=== PATIENT | male | born 1950 | race African-American/Black ===

== ENCOUNTER → 2016-04-12 | Outpatient (CLI) | payer MEDICARE, OTHER ==
[~2016-04-12] VITALS: Ht 165.1 cm; Wt 107.6 kg
[~2016-04-12] MED LIST: ASPI81TA2 PO; BISA5TAB12 PO; BUME1TAB30 PO; CALC-895 PO; FERR-89 PO; LANS30 PO; LEVO50TA4 PO; LINA5TAB PO; LISI-660 PO; SIRO1 PO; TACR1 PO; VITAD1000 PO
[2016-04-12 12:55] VITALS: BP 115/79
== END | disposition home or self-care (01) ==
LOC: SRCNTR 12:24
PROVIDERS: ATTEND Internal Medicine Critical Care Medicine
DX: J44.9 Chronic obstructive pulmonary disease, unspecified (principal); J96.10 Chronic respiratory failure, unspecified whether with hypoxia or hypercapnia; G47.33 Obstructive sleep apnea (adult) (pediatric); R09.02 Hypoxemia; E11.9 Type 2 diabetes mellitus without complications; I10 Essential (primary) hypertension; I50.9 Heart failure, unspecified
CPT/HCPCS: G0463

== ENCOUNTER → 2016-06-28 | Outpatient (CLI) | payer MEDICARE, OTHER ==
[~2016-06-28] VITALS: Ht 165.1 cm; Wt 102.5 kg
[~2016-06-28] MED LIST changes: -FERR-89 PO; +FERS325 PO
[2016-06-28 11:01] VITALS: BP 124/81
== END | disposition home or self-care (01) ==
LOC: SRCNTR 10:52
PROVIDERS: ATTEND Internal Medicine Critical Care Medicine
DX: J96.10 Chronic respiratory failure, unspecified whether with hypoxia or hypercapnia (principal); G47.33 Obstructive sleep apnea (adult) (pediatric); J44.9 Chronic obstructive pulmonary disease, unspecified; R09.02 Hypoxemia; E11.9 Type 2 diabetes mellitus without complications; I11.0 Hypertensive heart disease with heart failure; I50.9 Heart failure, unspecified; I42.9 Cardiomyopathy, unspecified; E78.5 Hyperlipidemia, unspecified; I25.10 Atherosclerotic heart disease of native coronary artery without angina pectoris; N40.0 Benign prostatic hyperplasia without lower urinary tract symptoms; Z94.1 Heart transplant status
CPT/HCPCS: G0463

== ENCOUNTER → 2016-07-01 | Outpatient (CLI) | payer MEDICARE, OTHER | END | disposition home or self-care (01) | LOC: RADMN 12:59 | PROVIDERS: ATTEND Internal Medicine Critical Care Medicine | DX: R91.1 Solitary pulmonary nodule (principal); I51.7 Cardiomegaly; I25.10 Atherosclerotic heart disease of native coronary artery without angina pectoris; I70.0 Atherosclerosis of aorta | CPT/HCPCS: 71250 ==

== ENCOUNTER → 2016-09-16 | Outpatient (CLI) | payer MEDICARE, OTHER ==
[~2016-09-16] VITALS: Ht 165.1 cm; Wt 104.6 kg
[~2016-09-16] MED LIST changes: +ALBU6.7H IH; +AMIO200T2 PO; +AMIO200T44 PO; +ATEN-188 PO; +ATOR40TA28 PO; +BENZ-26 PO; +BUDE0.5A5 IH; +CARV3.1231 PO; +CHOLESTEROL MED; +CLON.2 PO; +CLOP75 PO; +CLOT15C TP; +COMBIH IH; +DIGO125T71 PO; +DOBUTAMINE HCL; +DOCU250C91 PO; +FERR-89 PO; -FERS325 PO; +FLUT16H NASAL; +FURO10VI4 PO; +FURO20 PO; +FURO40 PO; +GLIP5 PO; +GLIP5TAB3 PO; +GLYB2.5 PO; +GUAI600T PO; +HTN; +HYDR10TA31 PO; +KDUR10 PO; +LACT30L PO; +LEVAHFA IH; +LEVO50 PO; +LEVO500T62 PO; +LISI-661 PO; +MAGOX PO; +METF500T4 PO; +METF500T7 PO; +METO-296 PO; +METO5TAB95 PO; +NITR1OIN TD; +NITR1OIN TP; +OCTR20VI3 SQ; +OMEP20 PO; +PANT40TA PO; +PANT40TA25 PO; +POTA10TA14 PO; +PRAS10TA6 PO; +PRAV20TA4 PO; +SILO8CAP PO; +SIMV-261 PO; +SITA100 PO; +SITA25 PO; +SITA50 PO; +SPIR25 PO; +TELM80TA2 PO; +TIOT185 IH; +WARF7.5 PO; +ZARO2.5 PO; +[UNRECOGNIZED DRUG - CODE] IV; +[UNRECOGNIZED DRUG - CODE] PO
[2016-09-16 13:40] VITALS: BP 100/74
== END | disposition home or self-care (01) ==
LOC: SRCNTR 13:27
PROVIDERS: ATTEND Internal Medicine
DX: J44.9 Chronic obstructive pulmonary disease, unspecified (principal); G47.33 Obstructive sleep apnea (adult) (pediatric); E11.9 Type 2 diabetes mellitus without complications; E78.5 Hyperlipidemia, unspecified; I10 Essential (primary) hypertension; I42.9 Cardiomyopathy, unspecified; N40.0 Benign prostatic hyperplasia without lower urinary tract symptoms; R91.1 Solitary pulmonary nodule; I25.811 Atherosclerosis of native coronary artery of transplanted heart without angina pectoris
CPT/HCPCS: G0463

== ENCOUNTER 2016-12-18 04:15 | Emergency (ER) | payer MEDICARE, OTHER ==
[~2016-12-18] VITALS: Ht 167.6 cm; Wt 105.0 kg
[~2016-12-18 04:15] MED LIST changes: -ALBU6.7H IH; -AMIO200T2 PO; -AMIO200T44 PO; +ASPI-1198 PO; -ASPI81TA2 PO; -ATEN-188 PO; -ATOR40TA28 PO; -BENZ-26 PO; -BUDE0.5A5 IH; +BUME1TAB17 PO; -BUME1TAB30 PO; -CARV3.1231 PO; -CHOLESTEROL MED; -CLON.2 PO; -CLOP75 PO; -CLOT15C TP; -COMBIH IH; -DIGO125T71 PO; -DOBUTAMINE HCL; -DOCU250C91 PO; -FLUT16H NASAL; -FURO10VI4 PO; -FURO20 PO; -FURO40 PO; -GLIP5 PO; -GLIP5TAB3 PO; -GLYB2.5 PO; -GUAI600T PO; -HTN; -HYDR10TA31 PO; -KDUR10 PO; -LACT30L PO; -LANS30 PO; -LEVAHFA IH; -LEVO50 PO; -LEVO500T62 PO; -LISI-661 PO; -MAGOX PO; -METF500T4 PO; -METF500T7 PO; -METO-296 PO; -METO5TAB95 PO; -NITR1OIN TD; -NITR1OIN TP; -OCTR20VI3 SQ; -OMEP20 PO; -PANT40TA PO; -PANT40TA25 PO; -POTA10TA14 PO; -PRAS10TA6 PO; -PRAV20TA4 PO; -SILO8CAP PO; -SIMV-261 PO; -SITA100 PO; -SITA25 PO; -SITA50 PO; -SPIR25 PO; -TELM80TA2 PO; -TIOT185 IH; -WARF7.5 PO; -ZARO2.5 PO; -[UNRECOGNIZED DRUG - CODE] IV; -[UNRECOGNIZED DRUG - CODE] PO
[2016-12-18] MEDS ORDERED: TADA10TA PO (04:24)
[2016-12-18] MEDS ORDERED: PRAV40TA4 PO (04:24)
[2016-12-18 04:53] LABS: BASOPHILS % (AUTO) 0.5 % (0.0-2.0); EOSINOPHILS % (AUTO) 0.8 % (1.0-6.0); HEMOGLOBIN 14.2 g/dL (13.5-17.5); LYMPHOCYTES # (AUTO) 0.6 K/uL (1.0-4.8); MEAN CORPUSCULAR HEMOGLOBIN 27.2 pg (26.0-34.0); MEAN CORPUSCULAR HGB CONC 33.8 G/dL (31.0-37.0); MEAN CORPUSCULAR VOLUME 81 fL (80-100); MONOCYTES # (AUTO) 0.3 K/uL (0.1-1.0); MONOCYTES % (AUTO) 6.4 % (2.0-9.0); NEUTROPHILS % (AUTO) 76.3 % (40.0-70.0); PLATELET COUNT (AUTO) 173 K/uL (150-450); RED BLOOD CELL COUNT(AUTO) 5.21 MIL/uL (4.50-5.90); RED CELL DISTRIBUTION WIDTH 15.4 % (11.5-14.5)
[2016-12-18] MEDS ORDERED: SODIUM CHLORIDE 0.9% 500 ML IV ONE (05:00)
[2016-12-18] MEDS ORDERED: MORPHINE SULFATE 4 MG/ML SYRINGE IVP ONE (05:00)
[2016-12-18] MEDS ORDERED: ONDANSETRON HCL 4 MG/2 ML VIAL IVP ONE (05:00)
[2016-12-18] MEDS ORDERED: BARIUM SULFATE 0.1% SUSPENSION 450 ML BOTTLE PO ONE (05:00)
[2016-12-18 05:11] LABS: CREATININE 1.64 mg/dL (0.60-1.30)
[2016-12-18 05:16] LABS: ALBUMIN 4.1 g/dL (3.4-5.0); BILIRUBIN,TOTAL 0.3 mg/dL (0.1-1.0); TOTAL PROTEIN, SERUM 7.9 g/dL (6.4-8.2)
[2016-12-18 05:22] LABS: PROTHROMBIN TIME 10.3 SEC (9.4-11.6)
[2016-12-18] MEDS ORDERED: IOVERSOL 320 MG/ML 100 ML VIAL ONE (06:00)
[2016-12-18] MEDS ORDERED: SODIUM CHLORIDE 0.9% 100 ML ONE (06:00)
[2016-12-18 06:35] LABS: APPEARANCE,URINE CLEAR (CLEAR); GLUCOSE, URINE (UA) NEGATIVE (NEGATIVE); KETONES,URINE NEGATIVE (NEGATIVE); LEUKOCYTE ESTERASE ,URINE NEGATIVE (NEGATIVE); OCCULT BLOOD,URINE NEGATIVE (NEGATIVE); PH,URINE 6.5 (5.0-8.0); PROTEIN,URINE NEGATIVE (NEGATIVE)
[2016-12-18 06:43] LABS: ADD UA MICROSCOPIC NO
[2016-12-18 09:00] VITALS: BP 128/80
[2016-12-18 11:33] LABS: GLUCOSE,POINT OF CARE 108 MG/DL (70-110)
== END 2016-12-18 09:27 | disposition left against medical advice (07) ==
LOC: EMS 04:18
DX: K56.7 Ileus, unspecified (principal); I11.0 Hypertensive heart disease with heart failure; I50.9 Heart failure, unspecified; I25.10 Atherosclerotic heart disease of native coronary artery without angina pectoris; E78.00 Pure hypercholesterolemia, unspecified; J44.9 Chronic obstructive pulmonary disease, unspecified; I25.2 Old myocardial infarction; E11.9 Type 2 diabetes mellitus without complications; Z95.0 Presence of cardiac pacemaker; Z79.82 Long term (current) use of aspirin; Z88.0 Allergy status to penicillin; Z88.1 Allergy status to other antibiotic agents
CPT/HCPCS: 36415; 74176; 80053; 81003; 82962; 83690; 84484; 85025; 85610; 93005; 96361; 96374; 96375; 99285; J2270; J2405; J7030; J7050; Q9967

== ENCOUNTER → 2017-01-06 | Outpatient (CLI) | payer MEDICARE, OTHER ==
[~2017-01-06] MED LIST changes: +PRAV40TA4 PO; +TADA10TA PO
== END | disposition home or self-care (01) ==
LOC: MSR 11:06
PROVIDERS: ATTEND Internal Medicine
DX: R91.1 Solitary pulmonary nodule (principal); J44.1 Chronic obstructive pulmonary disease with (acute) exacerbation; J98.4 Other disorders of lung; M46.00 Spinal enthesopathy, site unspecified
CPT/HCPCS: 71250; 94010; 94726; 94727; 94729

== ENCOUNTER 2017-04-06 09:17 | Emergency (ER) | payer MEDICARE, OTHER ==
[~2017-04-06] VITALS: Ht 170.2 cm; Wt 102.7 kg
[2017-04-06 09:42] LABS: GLUCOSE,POINT OF CARE 118 MG/DL (70-110)
[2017-04-06] MEDS ORDERED: PredniSONE 20 MG TABLET PO ONE (10:15)
[2017-04-06] MEDS ORDERED: DiphenhydrAMINE HCL 50 MG CAPSULE PO ONE (10:15)
[2017-04-06 11:40] VITALS: BP 128/90
== END 2017-04-06 12:29 | disposition home or self-care (01) ==
LOC: EMS 09:20
DX: T78.3XXA Angioneurotic edema, initial encounter (principal); I11.0 Hypertensive heart disease with heart failure; I25.811 Atherosclerosis of native coronary artery of transplanted heart without angina pectoris; E03.9 Hypothyroidism, unspecified; E11.9 Type 2 diabetes mellitus without complications; E78.00 Pure hypercholesterolemia, unspecified; I50.9 Heart failure, unspecified; J44.9 Chronic obstructive pulmonary disease, unspecified; Z88.0 Allergy status to penicillin; Z95.0 Presence of cardiac pacemaker; Z95.5 Presence of coronary angioplasty implant and graft; Z79.82 Long term (current) use of aspirin
CPT/HCPCS: 82962; 99283; J7512

== ENCOUNTER 2017-10-19 15:11 | Emergency (ER) | payer MEDICARE, OTHER ==
[~2017-10-19] VITALS: Ht 167.6 cm; Wt 100.0 kg
[~2017-10-19 15:11] MED LIST changes: -FERR-89 PO
[2017-10-19 16:07] LABS: BASOPHILS % (AUTO) 0.8 % (0.0-2.0); EOSINOPHILS % (AUTO) 0.1 % (1.0-6.0); HEMATOCRIT 45.9 % (41-53); HEMOGLOBIN 15.7 g/dL (13.5-17.5); LYMPHOCYTES # (AUTO) 0.8 K/uL (1.0-4.8); LYMPHOCYTES % (AUTO) 11.7 % (22.0-44.0); MEAN CORPUSCULAR HEMOGLOBIN 30.5 pg (26.0-34.0); MEAN CORPUSCULAR HGB CONC 34.2 G/dL (31.0-37.0); MEAN CORPUSCULAR VOLUME 89 fL (80-100); MONOCYTES # (AUTO) 0.5 K/uL (0.1-1.0); MONOCYTES % (AUTO) 7.5 % (2.0-9.0); NEUTROPHILS # (AUTO) 5.5 K/uL (1.8-7.7); NEUTROPHILS % (AUTO) 79.9 % (40.0-70.0); PLATELET COUNT (AUTO) 176 K/uL (150-450); RED BLOOD CELL COUNT(AUTO) 5.16 MIL/uL (4.50-5.90); RED CELL DISTRIBUTION WIDTH 13.9 % (11.5-14.5)
[2017-10-19 16:23] LABS: ANION GAP 11 mmol/L (8-16); CALCIUM, TOTAL 9.4 mg/dL (8.8-10.5); CARBON DIOXIDE 31 mmol/L (22-29); CHLORIDE 97 mmol/L (98-107); CREATININE 1.39 mg/dL (0.60-1.30); GLOMERULAR FILTR. RATE CALC > 60 mL/min (>60); GLUCOSE,RANDOM 194 mg/dL (70-110); POTASSIUM 3.2 mmol/L (3.5-5.1); SODIUM SERUM 139 mmol/L (136-145); UREA NITROGEN, BLOOD 26 mg/dL (7-18)
[2017-10-19 16:34] LABS: ALANINE AMINOTRANSFERASE 23 U/L (12-78); ALBUMIN 4.2 g/dL (3.4-5.0); ALKALINE PHOSPHATASE 57 U/L (46-116); ASPARTATE AMINOTRANSFERASE 21 U/L (15-37); BILIRUBIN,TOTAL 0.6 mg/dL (0.1-1.0); LIPASE 204 U/L (73-393); TOTAL PROTEIN, SERUM 8.3 g/dL (6.4-8.2)
[2017-10-19] MEDS ORDERED: MORPHINE SULFATE 4 MG/ML SYRINGE IVP ONE ×2 (17:15→20:30)
[2017-10-19] MEDS ORDERED: ONDANSETRON HCL 4 MG/2 ML VIAL IVP ONE ×2 (17:15→20:30)
[2017-10-19 17:50] LABS: APPEARANCE,URINE CLEAR (CLEAR); BILIRUBIN,URINE NEGATIVE (NEGATIVE); GLUCOSE, URINE (UA) 250 mg/dL (NEGATIVE); KETONES,URINE TRACE mg/dL (NEGATIVE); LEUKOCYTE ESTERASE ,URINE NEGATIVE (NEGATIVE); NITRATE,URINE NEGATIVE (NEGATIVE); OCCULT BLOOD,URINE TRACE (NEGATIVE); PROTEIN,URINE SEE CONFIRM (NEGATIVE); UROBILINOGEN,URINE 0.2 mg/dL (<=1.0)
[2017-10-19 18:31] LABS: BACTERIA,URINE None Seen /HPF (None Seen); SQUAMOUS EPITHELIAL CELL,UR Rare /LPF (None Seen); SULFOSALICYLIC ACID,URINE 2+ (Negative); WBC,URINE None Seen /HPF (0-5)
[2017-10-19 21:22] VITALS: BP 132/89
== END 2017-10-19 21:41 | disposition home or self-care (01) ==
LOC: EMS 15:11
DX: R10.13 Epigastric pain (principal); I11.0 Hypertensive heart disease with heart failure; I50.9 Heart failure, unspecified; J44.9 Chronic obstructive pulmonary disease, unspecified; E11.9 Type 2 diabetes mellitus without complications; E78.00 Pure hypercholesterolemia, unspecified; E03.9 Hypothyroidism, unspecified; I25.2 Old myocardial infarction; Z94.1 Heart transplant status; Z95.0 Presence of cardiac pacemaker; Z88.0 Allergy status to penicillin; Z88.1 Allergy status to other antibiotic agents; Z79.82 Long term (current) use of aspirin; Z79.899 Other long term (current) drug therapy
CPT/HCPCS: 36415; 71045; 74177; 76705; 80053; 81001; 83690; 84484; 85025; 93005; 96374; 96375; 99285; J2270; J2405

== ENCOUNTER 2018-02-26 09:24 | Emergency (ER) | payer MEDICARE, OTHER ==
[~2018-02-26] VITALS: Ht 177.8 cm; Wt 103.2 kg
[2018-02-26] MEDS ORDERED: PRAV40TA PO (09:55)
[2018-02-26] MEDS ORDERED: AMLO5TAB66 PO (09:55)
[2018-02-26 10:35] LABS: BASOPHILS % (AUTO) 0.1 % (0.0-2.0); EOSINOPHILS % (AUTO) 0.2 % (1.0-6.0); HEMATOCRIT 41.5 % (41-53); HEMOGLOBIN 14.2 g/dL (13.5-17.5); LYMPHOCYTES # (AUTO) 0.2 K/uL (1.0-4.8); LYMPHOCYTES % (AUTO) 5.6 % (22.0-44.0); MEAN CORPUSCULAR HEMOGLOBIN 30.3 pg (26.0-34.0); MEAN CORPUSCULAR HGB CONC 34.3 G/dL (31.0-37.0); MEAN CORPUSCULAR VOLUME 88 fL (80-100); NEUTROPHILS # (AUTO) 2.8 K/uL (1.8-7.7); PLATELET COUNT (AUTO) 113 K/uL (150-450); RED BLOOD CELL COUNT(AUTO) 4.69 MIL/uL (4.50-5.90); RED CELL DISTRIBUTION WIDTH 14.6 % (11.5-14.5)
[2018-02-26 10:37] LABS: NEUTROPHILS % (AUTO) 93.1 % (40.0-70.0)
[2018-02-26 11:00] LABS: ALANINE AMINOTRANSFERASE 20 U/L (12-78); ALBUMIN 3.3 g/dL (3.4-5.0); ALKALINE PHOSPHATASE 68 U/L (46-116); ANION GAP 12 mmol/L (8-16); ASPARTATE AMINOTRANSFERASE 20 U/L (15-37); BILIRUBIN,TOTAL 1.1 mg/dL (0.1-1.0); CALCIUM, TOTAL 8.7 mg/dL (8.8-10.5); CARBON DIOXIDE 27 mmol/L (22-29); CHLORIDE 96 mmol/L (98-107); CREATININE 1.76 mg/dL (0.60-1.30); GLOMERULAR FILTR. RATE CALC 47 mL/min (>60); GLUCOSE,RANDOM 183 mg/dL (70-110); SODIUM SERUM 135 mmol/L (136-145); TOTAL PROTEIN, SERUM 6.9 g/dL (6.4-8.2); UREA NITROGEN, BLOOD 23 mg/dL (7-18)
[2018-02-26 11:02] LABS: POTASSIUM 2.8 mmol/L (3.5-5.1)
[2018-02-26 11:04] LABS: B-TYPE NATRIURETIC PEPTIDE 62 pg/mL (0-100)
[2018-02-26] MEDS ORDERED: OSELTAMIVIR PHOSPHATE 75 MG CAPSULE PO ONE (11:30)
[2018-02-26] MEDS ORDERED: POTASSIUM CHLORIDE 10% 40 MEQ/30 ML LIQUID UDCUP PO ONE (11:30)
[2018-02-26 11:32] LABS: APPEARANCE,URINE CLOUDY (CLEAR); BILIRUBIN,URINE NEGATIVE (NEGATIVE); GLUCOSE, URINE (UA) 100 mg/dL (NEGATIVE); KETONES,URINE NEGATIVE (NEGATIVE); LEUKOCYTE ESTERASE ,URINE NEGATIVE (NEGATIVE); NITRATE,URINE NEGATIVE (NEGATIVE); OCCULT BLOOD,URINE LARGE (NEGATIVE); PROTEIN,URINE SEE CONFIRM (NEGATIVE); UROBILINOGEN,URINE 0.2 mg/dL (<=1.0)
[2018-02-26 11:46] LABS: BACTERIA,URINE None Seen /HPF (None Seen); SQUAMOUS EPITHELIAL CELL,UR Few /LPF (None Seen); SULFOSALICYLIC ACID,URINE 2+ (Negative)
[2018-02-26 11:55] LABS: INFLUENZA TYPE A NEGATIVE FOR TYPE A (NEGATIVE)
[2018-02-26 11:56] LABS: INFLUENZA TYPE B POSITIVE FOR TYPE B (NEGATIVE)
[2018-02-26 13:06] VITALS: BP 103/74
== END 2018-02-26 13:27 | disposition home or self-care (01) ==
LOC: EMS 09:26
DX: J11.1 Influenza due to unidentified influenza virus with other respiratory manifestations (principal); N28.9 Disorder of kidney and ureter, unspecified; I11.0 Hypertensive heart disease with heart failure; I50.9 Heart failure, unspecified; E78.00 Pure hypercholesterolemia, unspecified; I25.2 Old myocardial infarction; E11.9 Type 2 diabetes mellitus without complications; I25.10 Atherosclerotic heart disease of native coronary artery without angina pectoris; J44.9 Chronic obstructive pulmonary disease, unspecified; Z95.0 Presence of cardiac pacemaker; Z88.0 Allergy status to penicillin; Z79.899 Other long term (current) drug therapy
CPT/HCPCS: 83605; 87086; 87804; 93005

== ENCOUNTER 2024-01-23 08:38 | Day surgery (SDC) | payer MEDICARE, OTHER ==
[~2024-01-23] VITALS: Ht 167.6 cm; Wt 93.6 kg
[~2024-01-23 08:38] MED LIST changes: +AMLO5TAB66 PO; -BISA5TAB12 PO; -BUME1TAB17 PO; +BUME1TAB50 PO; +CHOL100018 PO; +LIDOCAINE/PF 2% 5 ML SYRINGE IVP ONE; -LISI-660 PO; +LISI-892 PO; +PRAV40TA PO; -PRAV40TA4 PO; +PROPOFOL 1% 20 ML VIAL IVP ONE; -SIRO1 PO; +SIRO1TAB PO; +SODIUM CHLORIDE 0.9% 1,000 ML ONE; -TACR1 PO; +TACR1CAP12 PO; -VITAD1000 PO
[2024-01-23] MEDS: SODIUM CHLORIDE 0.9% 1,000 ML IV ONE (10:57)
== END 2024-01-23 12:55 | disposition home or self-care (01) ==
LOC: SURGERY 08:38
PROVIDERS: ATTEND Internal Medicine Gastroenterology
DX: Z12.11 Encounter for screening for malignant neoplasm of colon (principal); D12.5 Benign neoplasm of sigmoid colon; I10 Essential (primary) hypertension; E11.9 Type 2 diabetes mellitus without complications; E78.00 Pure hypercholesterolemia, unspecified; Z86.73 Personal history of transient ischemic attack (TIA), and cerebral infarction without residual deficits; Z79.01 Long term (current) use of anticoagulants; Z79.84 Long term (current) use of oral hypoglycemic drugs; Z79.899 Other long term (current) drug therapy; Z98.890 Other specified postprocedural states; Z88.0 Allergy status to penicillin; Z88.1 Allergy status to other antibiotic agents
CPT/HCPCS: 45385; 88305; 93005; C1769; J2704; J3490; J7030